=== PATIENT | female | born 1960 | race Caucasian/White ===

== ENCOUNTER → 2020-07-18 | Outpatient (CLI) | payer OTHER ==
[~2020-07-18] MED LIST: ATORVASTATIN CA40 MG PO; BENTYL 10 MG CA10 MG PO; NORCO 5-325 TA1 EACH PO; OMEPRAZOLE40 MG PO; RAPIFLUX20 MG; SYNTHROID50 MCG; ZOFRAN4 MG PO; ZOLOFT25 MG PO
== END ==
LOC: M.CT 13:13
PROVIDERS: ATTEND Internal Medicine Cardiovascular Disease
DX: Z13.6 Encounter for screening for cardiovascular disorders (principal)